=== PATIENT | female | born 1960 | race Caucasian/White ===

== ENCOUNTER → 2017-12-18 | Outpatient (CLI) | payer MEDICARE, OTHER ==
[~2017-12-18] MED LIST: HYDACE5325 PO; LISINOPRIL PO; METF500 PO; METFORMIN PO; METO25ER PO; METO50ER PO; ROSU5 PO; SULTRIEL PO
[2017-12-20 14:05] LABS: HPV Genotype 16 Not Detected (NOTDET); HPV Genotype 18 Not Detected (NOTDET)
[2017-12-23 14:21] LABS: HPV High Risk Other Detected (NOTDET)
== END ==
LOC: LAB SHORT 17:30 → LAB 17:30
PROVIDERS: Family Medicine
DX: Z12.4 Encounter for screening for malignant neoplasm of cervix (principal); R87.619 Unspecified abnormal cytological findings in specimens from cervix uteri
CPT/HCPCS: 87624; G0145

== ENCOUNTER → 2019-04-07 | Outpatient (CLI) | payer MEDICARE, OTHER ==
[2019-04-07 10:05] LABS: Bilirubin, Urine Neg (Neg); Blood, Urine Neg (Neg); Glucose Qualitative, Urine Neg (Neg); Ketones, Urine Neg (Neg); Leukocyte Esterase, Urine Neg (Neg); Nitrite, Urine Neg (Neg); Protein, Urine Neg (Neg); Urobilinogen, Urine NORM (Normal)
[2019-04-07 10:08] LABS: Appearance, Urine Clear (Clear); Color, Urine Yellow (P-Yellow)
[2019-04-07 10:30] LABS: Creatinine, Urine Random 31.9 mg/dL (27.00-270.00)
[2019-04-07 10:32] LABS: Microalb/Creat Ratio UR, Rand 18.088 mg/g (0.000-30.000); Microalbumin, Random Urine 5.77 mg/L (0.000-20.000)
== END | disposition home or self-care (01) ==
LOC: LAB SHORT 06:30 → LAB 06:30 → LAB FUT 02-23 08:45
PROVIDERS: Family Medicine
DX: E11.9 Type 2 diabetes mellitus without complications (principal); E78.5 Hyperlipidemia, unspecified; N39.46 Mixed incontinence
CPT/HCPCS: 81003; 82043; 82570

== ENCOUNTER 2019-12-25 07:57 | Day surgery (SDC) | payer MEDICARE, OTHER ==
[~2019-12-25] VITALS: Wt 77.2 kg
[2019-12-25] MEDS ORDERED: ROSU5 PO (09:40)
[2019-12-25] MEDS ORDERED: METO100ER PO (09:40)
[2019-12-25] MEDS ORDERED: Aspir 8181 MG PO (09:41)
[2019-12-25] MEDS ORDERED: Vitamin D2000 UNIT PO (09:42)
[2019-12-25] MEDS ORDERED: Percocet 5-3251 EACH PO (09:43)
--- NOTE | 2019-12-25 13:20 | NUR ---
PATIENT CONTINUES TO DENY PAIN. NO MEDS GIVEN FOR PAIN MANAGEMENT. DENIES NAUSEA. TOLERATING WATER AND PUDDING. UP TO BR WITH MINIMAL ASSIST WITH FWW. REVEIWED DISCHARGE INSTRUCTIONS WITH DAUGHTER. OUT VIA WC FOR DISCHARGE
--- NOTE | 2019-12-27 11:09 | NUR ---
12/27/19 1109 Sorin Gordillo CHART IMPLANTS THAT NEEDED BUILT IN [facility]
== END 2019-12-25 23:01 | disposition home or self-care (01) ==
LOC: ORSCMMR 07:57 → ORD 07:57
PROVIDERS: Orthopaedic Surgery
PROC: 0QSD04Z Reposition Right Patella with Internal Fixation Device, Open Approach (ICD-10-PCS; principal; 2019-12-25 10:00)
DX: S82.001A Unspecified fracture of right patella, initial encounter for closed fracture (principal); E11.9 Type 2 diabetes mellitus without complications; E78.5 Hyperlipidemia, unspecified; I10 Essential (primary) hypertension; Z79.84 Long term (current) use of oral hypoglycemic drugs; Z79.899 Other long term (current) drug therapy; Z79.82 Long term (current) use of aspirin
CPT/HCPCS: 82947; 93005; 93010; C1713; J1100; J2250; J2405; J2704; J3010; J7120